=== PATIENT | male | born 1970 | race Caucasian/White ===

== ENCOUNTER 2017-07-05 19:14 | Emergency (ER) | payer OTHER ==
[2017-07-05 19:25] VITALS: BP 140/88
--- NOTE | 2017-07-05 19:43 | EDM.PDOC ---
ED HPI GENERAL MEDICAL PROBLEM - General Chief Complaint: General Stated Complaint: RIB PAIN Time Seen by Provider: 07/05/17 19:20 Source of Information: Reports: Patient History Limitations: Reports: No Limitations - History of Present Illness INITIAL COMMENTS - FREE TEXT/NARRATIVE: According to patient he claims that he has had left side lower rib pain since today morning. Pt claims he did not wake up with pain. But in the morning felt a mild spasm in hsi lower rib. he has been lifting and pulling on things. Gradually over the day the pain has got worse. Hurts when he bends forward and turns to the right side or when he takes deep breath. No chest wall lesions or bleeding. Pt is not on any meds. No fever, chills, cough , shortness of breath.No other complaints. Onset: Today Onset Date: 07/05/17 Onset Time: 08:00 Location: Reports: Chest Quality: Reports: Dull Severity: Mild Improves with: Reports: None Worsens with: Reports: None Associated Symptoms: Reports: Chest Pain. 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 Left Thoracic Pain Score (Numeric/FACES): 7 - Related Data Allergies Allergy/AdvReac Type Severity Reaction Status Date / Time No Known Allergies Allergy Verified 07/05/17 19:23 Home Meds: Home Meds NK [No Known Home Meds] 07/05/17 [History] Past Medical History HEENT History: Reports: Impaired Vision Gastrointestinal History: Reports: GERD Musculoskeletal History: Reports: Back Pain, Chronic Neurological History: Reports: Migraines - Infectious Disease History Infectious Disease History: Reports: Chicken Pox, Measles, Mumps Social & Family History - Family History Family Medical History: Noncontributory - Tobacco Use Smoking Status *Q: Former Smoker Years of Tobacco use: 33 Packs/Tins Daily: 1 Used Tobacco, but Quit: Yes Month Tobacco Last Used: 06/2017 Second Hand Smoke Exposure: No - Caffeine Use Caffeine Use: Reports: Coffee - Recreational Drug Use Recreational Drug Use: No ED ROS GENERAL - Review of Systems Review Of Systems: See Below Constitutional: Denies: Fever, Chills HEENT: Denies: Eye Discharge, Rhinitis, Sinus Problem, Throat Pain, Throat Swelling Respiratory: Reports: Pleuritic Chest Pain. Denies: Shortness of Breath, Cough , Sputum Cardiovascular: Reports: Chest Pain. Denies: Lightheadedness Endocrine: Denies: Fatigue GI/Abdominal: Denies: Abdominal Pain, Anorexia, Nausea, Stool Incontinence, Vomiting : Denies: Dysuria, Flank Pain Musculoskeletal: Denies: Joint Pain, Joint Swelling Skin: Denies: Pruritis, Rash Neurological: Denies: Confusion, Dizziness, Headache ED EXAM, GENERAL - Physical Exam Exam: See Below Exam Limited By: No Limitations General Appearance: Alert, WD/WN, No Apparent Distress Eye Exam: Bilateral Eye: EOMI, PERRL Ears: Normal External Exam, Normal Canal, Hearing Grossly Normal, Normal TMs Ear Exam: Bilateral Ear: Auricle Normal, Canal Normal, TM normal Nose: Normal Inspection, Normal Mucosa, No Blood Throat/Mouth: Normal Inspection, Normal Lips, Normal Teeth, Normal Gums, Normal Oropharynx, Normal Voice, No Airway Compromise Head: Atraumatic, Normocephalic Neck: Normal Inspection, Supple, Non-Tender, Full Range of Motion Respiratory/Chest: No Respiratory Distress, Lungs Clear, Normal Breath Sounds, No Accessory Muscle Use, Other (tender over the left lower costal margin in the left MCL line to palpation.) Course - Vital Signs Text/Narrative:: Pt reassured that he has developed costochondritis of the left lower ribs. Advised motrin 800mg 3 times daily. Intermittent heat to the chest wall 3-4 times daily. Avoid lifting heavy weight, bending or twisting motion until pain resolves. Advised to return to clinic if the chest pain gets worse or has any acute symptoms. Last Recorded V/S: Last Vital Signs Temp 98.6 F 07/05/17 19:28 Pulse 88 07/05/17 19:28 Resp 16 07/05/17 19:28 BP 140/88 07/05/17 19:28 Pulse Ox 98 07/05/17 19:28 Departure - Departure Time of Disposition: 19:45 Disposition: Home, Self-Care 01 Condition: Good Clinical Impression: Costochondritis - Discharge Information Forms: ED Department Discharge Additional Instructions: Take 800mg Motrin (Ibuprofen) by mouth 3 times daily with food, for pain. Also apply heat intermittently to affected area as directed: up to 3 times daily for 10-15 minutes each time. Activity as tolerated. Follow up in clinic if needed. - Problem List & Annotations (1) Costochondritis SNOMED Code(s): 36869473 Code(s): M94.0 - CHONDROCOSTAL JUNCTION SYNDROME [TIETZE] Status: Acute - Problem List Review Problem List Initiated/Reviewed/Updated: Yes - Assessment/Plan Assessment:: Costochondritis Plan: Pt reassured that he has developed costochondritis of the left lower ribs. Advised motrin 800mg 3 times daily. Intermittent heat to the chest wall 3-4 times daily. Avoid lifting heavy weight, bending or twisting motion until pain resolves. Advised to return to clinic if the chest pain gets worse or has any acute symptoms.
== END 2017-07-05 19:35 | disposition home or self-care (01) ==
LOC: LB.ED 19:14
DX: M94.0 Chondrocostal junction syndrome [Tietze] (principal); K21.9 Gastro-esophageal reflux disease without esophagitis; G43.909 Migraine, unspecified, not intractable, without status migrainosus; Z87.891 Personal history of nicotine dependence
CPT/HCPCS: 99283

== ENCOUNTER 2017-10-27 16:50 | Observation (INO) | payer OTHER ==
[2017-10-27] MEDS ORDERED: Sodium Chloride 0.9% 10 ML Syringe FLUSH PRN (17:04)
[2017-10-27] MEDS: Nitroglycerin 0.4 MG Tab.SL SL PRN ×2 (17:21→17:33)
--- NOTE | 2017-10-27 17:21 | EDM.PDOC ---
ED HPI GENERAL MEDICAL PROBLEM - General Chief Complaint: Chest Pain Stated Complaint: chest pain Time Seen by Provider: 10/27/17 16:50 Source of Information: Reports: Patient, RN History Limitations: Reports: No Limitations - History of Present Illness INITIAL COMMENTS - FREE TEXT/NARRATIVE: 47 yr male presents with chest pressure around 3pm today after taking a clindamycin. Upper GI pain started and chest pressure.. He took the medicine without food. States feels like indigestion. States he has family hx of cardiac disease, but none for him. States he feels if he could burp he would feel better. 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) (peptobismol) - Related Data Allergies Allergy/AdvReac Type Severity Reaction Status Date / Time No Known Allergies Allergy Verified 10/27/17 17:22 Home Meds: Home Meds Clindamycin HCl 300 mg PO QID 10/27/17 [History] Past Medical History HEENT History: Reports: Impaired Vision Gastrointestinal History: Reports: GERD Musculoskeletal History: Reports: Back Pain, Chronic Neurological History: Reports: Migraines - Infectious Disease History Infectious Disease History: Reports: Chicken Pox, Measles, Mumps Social & Family History - Family History Family Medical History: Noncontributory - Tobacco Use Smoking Status *Q: Former Smoker Years of Tobacco use: 33 Packs/Tins Daily: 1 Used Tobacco, but Quit: Yes Month Tobacco Last Used: 06/2017 Second Hand Smoke Exposure: No - Caffeine Use Caffeine Use: Reports: Coffee - Recreational Drug Use Recreational Drug Use: No ED ROS GENERAL - Review of Systems Review Of Systems: See Below Constitutional: Reports: No Symptoms HEENT: Reports: No Symptoms, Glasses Respiratory: Reports: No Symptoms Cardiovascular: Reports: Chest Pain, Other (burning ) GI/Abdominal: Reports: Other (burning to upper GI/chest) : Reports: No Symptoms Musculoskeletal: Reports: No Symptoms Skin: Reports: No Symptoms Neurological: Reports: No Symptoms Psychiatric: Reports: No Symptoms ED EXAM, GENERAL - Physical Exam Exam: See Below Exam Limited By: No Limitations General Appearance: Alert, No Apparent Distress Ears: Hearing Grossly Normal Nose: Normal Inspection, Normal Mucosa Throat/Mouth: Normal Inspection, Other (serosanguinous drainage noted to bottom jaw, where tooth extracted.) Head: Atraumatic Neck: Supple, Non-Tender Respiratory/Chest: No Respiratory Distress, Lungs Clear, Normal Breath Sounds Cardiovascular: Normal Peripheral Pulses, Regular Rate, Rhythm, No Edema GI/Abdominal: Normal Bowel Sounds, Soft, Non-Tender Extremities: Normal Inspection, Normal Range of Motion Neurological: Alert, Oriented, Normal Cognition Skin Exam: Warm, Dry, Normal Color EKG INTERPRETATION EKG Date: 10/27/17 Time: 17:01 Rhythm: NSR Course - Vital Signs Last Recorded V/S: Last Vital Signs Temp 98 F 10/27/17 17:00 Pulse 67 10/27/17 17:00 Resp 16 10/27/17 17:00 BP 144/97 H 10/27/17 17:00 Pulse Ox 100 10/27/17 17:00 - Orders/Labs/Meds Orders: Medication Orders Acetaminophen (Tylenol) 650 mg PO Q4H PRN PRN Reason: analgesia/fever Hydrocodone Bitart/Acetaminophen (Richardson 325-5 Mg) 1 tab PO Q4H PRN PRN Reason: Pain Al Hydroxide/Mg Hydroxide (Mag-Al Plus) 30 ml PO Q4H PRN PRN Reason: Dyspepsia Sodium Chloride (Normal Saline) 1,000 mls @ 100 mls/hr IV ASDIRECTED JACINDA Non-Formulary Medication (Clindamycin Hcl [Clindamycin Hcl]) 300 mg PO QID JACINDA Pantoprazole Sodium (Protonix Iv) 40 mg IVPUSH Q12H JACINDA Sodium Chloride (Saline Flush) 10 ml FLUSH ASDIRECTED PRN PRN Reason: Keep Vein Open Meds: Medications Generic Name Dose Route Start Last Admin Trade Name Freq PRN Reason Stop Dose Admin Acetaminophen 650 mg 10/27/17 18:05 Tylenol PO Q4H PRN analgesia/fever Hydrocodone Bitart/Acetaminophen 1 tab 10/27/17 18:13 Richardson 325-5 Mg PO Q4H PRN Pain Al Hydroxide/Mg Hydroxide 30 ml 10/27/17 18:05 Mag-Al Plus PO Q4H PRN Dyspepsia Sodium Chloride 1,000 mls @ 100 mls/hr 10/27/17 18:15 Normal Saline IV ASDIRECTED JACINDA Non-Formulary Medication 300 mg 10/27/17 20:00 Clindamycin Hcl [Clindamycin Hcl] PO QID JACINDA Pantoprazole Sodium 40 mg 10/28/17 06:00 Protonix Iv IVPUSH Q12H JACINDA Sodium Chloride 10 ml 10/27/17 17:04 Saline Flush FLUSH ASDIRECTED PRN Keep Vein Open Discontinued Medications Generic Name Dose Route Start Last Admin Trade Name [place] PRN Reason Stop Dose Admin Pantoprazole Sodium Confirm 10/27/17 17:46 10/27/17 19:50 Protonix Iv Administered 10/27/17 17:47 Not Given Dose 40 mg .ROUTE .STK-MED ONE Departure - Departure Time of Disposition: 18:15 Disposition: Refer to Observation Condition: Good Clinical Impression: Gastroenteritis - Problem List & Annotations (1) Chest pain in adult SNOMED Code(s): 27342420 Code(s): R07.9 - CHEST PAIN, UNSPECIFIED Status: Acute Priority: High Current Visit: Yes - Problem List Review Problem List Initiated/Reviewed/Updated: Yes - Assessment/Plan Assessment:: Chest pain: EKG, labs, chest x-ray, IV/saline lock, GI cocktail Nitro given SL X2 with some relief of pain. Pt alert and talking and in no acute distress. Results of chest x-ray and EKG reviewed with pt here 17:30 17:54 Protonix 40 mg IV was given and now jackson lawanda given. Troponin neg. CMP normal, Elevated WBC 12.41. Plan: Admit to observation: gastritis , Telemetry IV Nacl @ 100cc/hr Troponin 2100 Richardson 1 tab PO for pain.
--- NOTE | 2017-10-27 17:45 | CR ---
DATE OF SERVICE: 10/27/17 CLINICAL DATA: Chest Pain PORTABLE CHEST Comparison is made to a prior exam dated 02/04/10. The patient has taken a poor inspiration. The exam is somewhat underpenetrated. The heart size is normal. The pulmonary vasculature appears mildly prominent. It is probably accentuated by the poor inspiration. The lungs appear clear. No pneumothorax. No pleural effusions. No other significant findings. [id number] [facility]
[2017-10-27] MEDS ORDERED: Pantoprazole 40 MG Vial ONE (17:46)
[2017-10-27] MEDS ORDERED: Aluminum Hydroxide/Magnesium Hydroxide/Simethicone Susp 30 ML Cup PO PRN (18:05)
[2017-10-27] MEDS ORDERED: Acetaminophen 325 MG Tab PO PRN (18:05)
[2017-10-27] MEDS ORDERED: Acetaminophen/HYDROcodone 325-5 MG Tab PO PRN (18:13)
[2017-10-27] MEDS ORDERED: Sodium Chloride 0.9% 1,000 ML IV SCH (18:15)
[2017-10-27] MEDS ORDERED: CLINDAMYCIN HCL 300 MG PO SCH (20:00)
[2017-10-27] MEDS ORDERED: GI Cocktail Oral Solution 30 ML PO ONE (21:48)
[2017-10-27 21:54] VITALS: BP 109/77
--- NOTE | 2017-10-27 21:56 | PCM.DCSUM1 ---
Discharge Summary - Hospital Course Free Text/Narrative:: F/U with dentist for pain medication if needed and notify of reaction to antibiotic - Discharge Data Discharge Date: 10/27/17 Discharge Disposition: Home, Self-Care 01 Condition: Good - Discharge Diagnosis/Problem(s) (1) Chest pain in adult SNOMED Code(s): 60335970 ICD Code: R07.9 - CHEST PAIN, UNSPECIFIED Status: Acute Priority: High - Patient Instructions Diet: Usual Diet as Tolerated Activity: Apply Ice, Rest and Relax Today Driving: Do Not Drive Notify Provider of: Fever, Increased Pain - Discharge Plan Home Medications: Home Meds Clindamycin HCl 300 mg PO QID 10/27/17 [History] Forms: ED Department Discharge Referrals: PCP,None [Primary Care Provider] - - General Info Date of Service: 10/27/17 Admission Dx/Problem (Free Text: gastritis Functional Status: Reports: Pain Controlled - Review of Systems General: Reports: No Symptoms HEENT: Reports: No Symptoms Pulmonary: Reports: No Symptoms Cardiovascular: Reports: Other (pain improved) Gastrointestinal: Reports: Abdominal Pain (Pain is improved to abdomen) Genitourinary: Reports: No Symptoms Musculoskeletal: Reports: No Symptoms Skin: Reports: No Symptoms Neurological: Reports: No Symptoms Psychiatric: Reports: No Symptoms - Patient Data Vitals - Most Recent: Last Vital Signs Temp 98 F 10/27/17 21:44 Pulse 74 10/27/17 21:44 Resp 20 10/27/17 21:44 BP 113/74 10/27/17 21:44 Pulse Ox 99 10/27/17 21:44 Weight - Most Recent: 15 lb 3 oz Lab Results - Last 24 hrs: Laboratory Results - last 24 hr 10/27/17 Range/Units 20:45 Troponin I < 0.017 (0.000-0.060) ng/mL Med Orders - Current: Current Medications Nitroglycerin (Nitrostat) 0.4 mg SL Q5M PRN PRN Reason: Chest Pain Discontinued Medications Acetaminophen (Tylenol) 650 mg PO Q4H PRN PRN Reason: analgesia/fever Hydrocodone Bitart/Acetaminophen ([place] 325-5 Mg) 1 tab PO Q4H PRN PRN Reason: Pain Last Admin: 10/27/17 20:10 Dose: 1 tab Al Hydroxide/Mg Hydroxide (Mag-Al Plus) 30 ml PO Q4H PRN PRN Reason: Dyspepsia Last Admin: 10/27/17 21:37 Dose: 30 ml Al Hydroxide/Mg Hydroxide (Gi Cocktail) 30 ml PO ONETIME ONE Stop: 10/27/17 21:49 Sodium Chloride (Normal Saline) 1,000 mls @ 100 mls/hr IV ASDIRECTED [facility] Last Admin: 10/27/17 18:30 Dose: 100 mls/hr Non-Formulary Medication (Clindamycin Hcl [Clindamycin Hcl]) 300 mg PO QID [facility] Last Admin: 10/27/17 21:00 Dose: 300 mg Pantoprazole Sodium (Protonix Iv) Confirm Administered Dose 40 mg .ROUTE .STK -MED ONE Stop: 10/27/17 17:47 Last Admin: 10/27/17 19:50 Dose: Not Given Pantoprazole Sodium (Protonix Iv) 40 mg IVPUSH Q12H [facility] Last Admin: 10/27/17 17:54 Dose: 40 mg Sodium Chloride (Saline Flush) 10 ml FLUSH ASDIRECTED PRN PRN Reason: Keep Vein Open Last Admin: 10/27/17 17:05 Dose: 10 ml - Exam General: Reports: Alert, Oriented HEENT: Reports: Mucous Membr. Moist/Eunice Neck: Reports: Supple Lungs: Reports: Clear to Auscultation, Normal Respiratory Effort Cardiovascular: Reports: Regular Rate, Regular Rhythm GI/Abdominal Exam: Normal Bowel Sounds, Soft Extremities: Normal Inspection, Normal Range of Motion, Non-Tender, No Pedal Edema Skin: Reports: Warm, Dry, Intact Neurological: Reports: No New Focal Deficit Psy/Mental Status: Reports: Alert, Normal Affect, Normal Mood *Q Meaningful Use (DIS) - VTE *Q VTE Criteria *Q: - Stroke *Q Stroke Criteria *Q: - AMI *Q AMI Criteria *Q:
[2017-10-28] MEDS ORDERED: Pantoprazole 40 MG Vial IVPUSH SCH (06:00)
== END 2017-10-27 21:47 | disposition home or self-care (01) ==
LOC: LB.ED 16:50 → UNDOADMOB 17:00 → LB.MS 17:00 → UNDOADMOB 18:15 → UNDODISOB 21:47
PROVIDERS: ADMIT Nurse Practitioner Family; ATTEND Nurse Practitioner Family
DX: R07.9 Chest pain, unspecified (principal); K21.9 Gastro-esophageal reflux disease without esophagitis; G89.29 Other chronic pain; M54.5 Low back pain; Z87.891 Personal history of nicotine dependence; Z79.899 Other long term (current) drug therapy
CPT/HCPCS: 36415; 71010; 84484; 93005; 96361; 99285; A9270; C9113; G0378; J7040; J7050

== ENCOUNTER 2019-01-13 07:46 | Day surgery (SDC) | payer OTHER ==
[2019-01-13] MEDS: Sodium Chloride 0.9% 1,000 ML IV SCH (08:18)
[2019-01-13] MEDS ORDERED: Midazolam 1 MG/ML 2 ML SDV ONE (10:15)
[2019-01-13] MEDS ORDERED: Propofol 1,000 MG/100 ML SDV ONE (10:15)
[2019-01-13] MEDS ORDERED: Glycopyrrolate 0.2 MG/ML 2 ML SDV ONE (10:15)
[2019-01-13 11:05] VITALS: BP 136/96
[2019-01-13] MEDS: Metoclopramide 10 MG/2 ML SDV IV PRN (11:55)
--- NOTE | 2019-01-13 13:28 | OR ---
DATE OF OPERATION: 01/13/2019 PREOPERATIVE DIAGNOSIS: Screening colonoscopy, family history of colon cancer. POSTOPERATIVE DIAGNOSIS: Screening colonoscopy, family history of colon cancer. PROCEDURE: Colonoscopy. ANESTHESIA: MAC. ESTIMATED BLOOD LOSS: None. COMPLICATIONS: None. INDICATIONS FOR THE PROCEDURE: The patient is a 48-year-old male who is here today for screening colonoscopy. The patient does have a family history with his mother being diagnosed at 29 and dying at age 35 from colon cancer. The patient otherwise denies any change in his bowel habits. He has never had a colonoscopy or Cologuard before. DESCRIPTION OF PROCEDURE: Informed consent was obtained from the patient. The patient was taken to the operating room and placed on table in left lateral decubitus position. Monitored anesthesia care was administered. Digital rectal exam was performed and was normal. Colonoscope then advanced through the anus, directed toward the cecum. Cecum was reached and identified by appendiceal orifice and ileocecal valve. Colonoscope was then slowly withdrawn. No polyps, no masses identified. The patient did have some mild diverticulosis in the sigmoid colon. Retroflexion was performed in the rectum and was also unremarkable. Colonoscope was then withdrawn. FINDINGS: Sigmoid diverticulosis. RECOMMENDATIONS: We would recommend repeat screening colonoscopies every 5 years due to family history. Otherwise, we would recommend high-fiber diet due to diverticula. ADILIA /[id number]
== END 2019-01-13 12:59 | disposition home or self-care (01) ==
LOC: LB.SDS 07:46
PROVIDERS: ATTEND Surgery
DX: Z12.11 Encounter for screening for malignant neoplasm of colon (principal); K57.30 Diverticulosis of large intestine without perforation or abscess without bleeding; Z80.0 Family history of malignant neoplasm of digestive organs
CPT/HCPCS: 45378; J2250; J2704; J2765; J3490; J7030

== ENCOUNTER 2020-07-29 02:30 | Inpatient (IN) | payer BC, OTHER ==
--- NOTE | 2020-07-29 02:50 | EDM.PDOC ---
ED HPI GENERAL MEDICAL PROBLEM - General Chief Complaint: Abdominal Pain Stated Complaint: Possible Diverticulitis Time Seen by Provider: 07/29/20 02:32 Source of Information: Reports: Patient History Limitations: Reports: No Limitations - History of Present Illness INITIAL COMMENTS - FREE TEXT/NARRATIVE: lower abdominal pain x 2 weeks, had a virtual visit with Dr. Agosto last week and was diagnosed with diverticulitis and started on cipro and flagyl. He started the antibiotics tonight and the pain increased with N/V/D. Denies any chest pain, SOB, fever, cough, urinary symptoms Quality: Reports: Ache Severity: Moderate Improves with: Reports: None Worsens with: Reports: None Associated Symptoms: Reports: No Other Symptoms - Related Data Allergies Allergy/AdvReac Type Severity Reaction Status Date / Time clindamycin Allergy Hives Verified 01/11/19 09:18 Home Meds: Home Meds buPROPion [Wellbutrin] 150 mg PO BID 01/11/19 [History] Past Medical History - Past Health History Medical/Surgical History: Denies Medical/Surgical History HEENT History: Reports: Impaired Vision Gastrointestinal History: Reports: GERD Musculoskeletal History: Reports: Back Pain, Chronic Neurological History: Reports: Migraines Psychiatric History: Reports: Depression - Infectious Disease History Infectious Disease History: Reports: Chicken Pox, Measles - Past Surgical History HEENT Surgical History: Reports: Other (See Below) Other HEENT Surgeries/Procedures: removed right second moler Neurological Surgical History: Reports: None Social & Family History - Family History Family Medical History: Noncontributory Cardiac: Reports: CAD - Caffeine Use Caffeine Use: Reports: Coffee Caffeine Use Comment: one cup a day ED ROS GENERAL - Review of Systems Review Of Systems: See Below Constitutional: Reports: No Symptoms HEENT: Reports: No Symptoms Respiratory: Reports: No Symptoms Cardiovascular: Reports: No Symptoms Endocrine: Reports: No Symptoms GI/Abdominal: Reports: Abdominal Pain, Diarrhea, Nausea, Vomiting : Reports: No Symptoms Musculoskeletal: Reports: No Symptoms Skin: Reports: No Symptoms Neurological: Reports: No Symptoms Psychiatric: Reports: No Symptoms ED EXAM, GI/ABD - Physical Exam Exam: See Below Exam Limited By: No Limitations General Appearance: Alert, No Apparent Distress Throat/Mouth: Normal Inspection Head: Atraumatic Neck: Normal Inspection, Full Range of Motion Respiratory/Chest: No Respiratory Distress, Lungs Clear, Normal Breath Sounds Cardiovascular: No Edema, No Murmur, Tachycardia GI/Abdominal Exam: Tender, Abnormal Bowel Sounds (hypoactive) Extremities: Normal Inspection, Normal Range of Motion, Non-Tender, No Pedal Edema Neurological: Alert, Oriented, Normal Gait Psychiatric: Normal Affect, Normal Mood Skin Exam: Warm, Dry, Intact Course - Vital Signs Last Recorded V/S: Last Vital Signs Temp 96.9 F 07/29/20 02:32 Pulse 92 07/29/20 02:32 Resp 16 07/29/20 02:32 BP 148/98 H 07/29/20 02:32 Pulse Ox 96 07/29/20 02:32 - Orders/Labs/Meds Orders: Active Orders 24 hr Category Date Time Status Admission Status [Patient Status] [ADT] Routine ADT 07/29/20 04:23 Ordered Abdomen Pelvis wo Cont [CT] Stat Exams 07/29/20 02:46 Taken Labs: Laboratory Tests 07/29/20 07/29/20 Range/Units 02:46 02:46 WBC 12.2 H D (4.0-11.0) K/uL RBC 5.29 (4.50-6.50) M/uL Hgb 15.1 (13.0-18.0) g/dL Hct 44.9 (40.0-54.0) % MCV 85 (76-96) fL MCH 28.5 (27.0-32.0) pg MCHC 33.6 (31.0-35.0) g/dL RDW 14.9 (11.0-16.0) % Plt Count 245 (150-400) K/uL MPV 11.0 H (6.0-10.0) fL Neut % (Auto) 75.3 H (45.0-70.0) % Lymph % (Auto) 16.7 L (20.0-40.0) % Crawford % (Auto) 6.7 (3.0-10.0) % Eos % (Auto) 1.1 (1.0-5.0) % Baso % (Auto) 0.2 (0.0-0.5) % Neut # (Auto) 9.16 H (2.00-7.50) K/uL Lymph # (Auto) 2.04 (1.50-4.00) K/uL Crawford # (Auto) 0.82 H (0.20-0.80) K/uL Eos # (Auto) 0.14 (0.04-0.40) K/uL Baso # (Auto) 0.03 (0.02-0.10) K/uL Sodium 140 (136-145) mmol/L Potassium 4.1 (3.5-5.1) mmol/L Chloride 105 (98-107) mmol/L Carbon Dioxide 24.6 (21.0-32.0) mmol/L Anion Gap 14.5 (5.0-15.0) mmol/L BUN 14 (8-26) mg/dL Creatinine 1.27 D (0.70-1.30) mg/dL Est Cr Clr Drug Dosing 74.11 mL/min Estimated GFR (MDRD) > 60 (>60) MLS/MIN BUN/Creatinine Ratio 11.0 (6-25) Glucose 122 H (74-100) mg/dL Calcium 8.7 (8.5-10.1) mg/dL Total Bilirubin 0.4 (0.0-1.0) mg/dL AST 16 (15-37) U/L ALT 34 (12-78) U/L Alkaline Phosphatase 57 (46-116) U/L Total Protein 6.9 (6.4-8.2) g/dL Albumin 3.1 L (3.4-5.0) g/dL Globulin 3.8 (2.2-4.2) g/dL Albumin/Globulin Ratio 0.8 (0.8-2.0) Meds: Medications Discontinued Medications Generic Name Dose Route Start Last Admin Trade Name Freq PRN Reason Stop Dose Admin Hydromorphone HCl 1 mg 07/29/20 02:52 07/29/20 02:56 Dilaudid IVPUSH 07/29/20 02:53 1 mg ONETIME ONE Administration Ondansetron HCl 8 mg 07/29/20 02:52 07/29/20 02:56 Zofran IVPUSH 07/29/20 02:53 8 mg ONETIME ONE Administration Departure - Departure Time of Disposition: 04:26 Disposition: Admitted As Inpatient 66 Condition: Good Clinical Impression: Diverticulitis Leukocytosis Qualifiers: Leukocytosis type: unspecified Qualified Code(s): D72.829 - Elevated white blood cell count, unspecified Clinical Impression: (Ruled Out): Diverticulitis of intestine with perforation without abscess, Diverticula of intestine - Discharge Information *PRESCRIPTION DRUG MONITORING PROGRAM REVIEWED*: Not Applicable *COPY OF PRESCRIPTION DRUG MONITORING REPORT IN PATIENT CHARY: Not Applicable Instructions: Diverticulitis, [id number] Forms: ED Department Discharge Sepsis Event Note (ED) - Evaluation Sepsis Screening Result: No Definite Risk - Focused Exam Vital Signs: Vital Signs Temp Pulse Resp BP Pulse Ox 07/29/20 02:32 96.9 F 92 16 148/98 H 96 - My Orders Last 24 Hours: My Active Orders 07/29/20 02:46 Abdomen Pelvis wo Cont [CT] Stat 07/29/20 04:23 Admission Status [Patient Status] [ADT] Routine - Assessment/Plan Last 24 Hours: My Active Orders 07/29/20 02:46 Abdomen Pelvis wo Cont [CT] Stat 07/29/20 04:23 Admission Status [Patient Status] [ADT] Routine Plan: CT reveals "sigmoid colon diverticulitis with marked surrounding stranding with adjacent extraluminal focus of air compatible with microperforation" patient has good pain relief but unable to tolerate PO liquids. Will admit to obs for IV fluids and IV antibiotics. Patient will remain NPO. He verbalized understanding of the plan.
[2020-07-29] MEDS ORDERED: HYDROmorphone 2 MG/ML SDV IVPUSH ONE (02:52)
[2020-07-29] MEDS ORDERED: Ondansetron 4 MG/2 ML SDV IVPUSH ONE (02:52)
[2020-07-29] MEDS ORDERED: metroNIDAZOLE/Normal Saline 100 ML ONE ×3 (05:04→23:40)
[2020-07-29] MEDS: Sodium Chloride 0.9% 1,000 ML IV SCH (05:23)
[2020-07-29] MEDS: metroNIDAZOLE/Normal Saline 500 MG in Premix Bag 1 BAG IV SCH ×3 (05:24→23:41)
[2020-07-29] MEDS ORDERED: Acetaminophen 325 MG Tab PO PRN (08:08)
[2020-07-29] MEDS: Ciprofloxacin in D5W 400 MG in Premix Bag 1 BAG IV SCH ×4 (08:17→22:06)
--- NOTE | 2020-07-29 10:04 | CT ---
DATE OF SERVICE: 07/29/20 CLINICAL DATA: abd pain UNENHANCED ABDOMEN AND PELVIC CT: Multislice acquisition through the abdomen and pelvis without IV, but with oral contrast was performed. No priors. There are mild atelectatic changes in the dependent portion of both lower lungs and in both lung bases. The lung bases are otherwise clear. The heart size is normal. There is mural thickening within the distal esophagus. Esophagitis should be considered. There is diffuse fatty infiltration of the liver. No focal hepatic lesions. The gallbladder appears normal. No calcified gallstones. No pericholecystic fluid. The spleen appears normal. The pancreas appears normal. The right and left adrenals appear normal. There are multiple parapelvic cysts in the left kidney. The right and left kidneys otherwise appear normal. No nephrocalcinosis or nephrolithiasis. No hydronephrosis or hydroureter. The bladder is partially fluid filled. It appears normal. No evidence of appendicitis. There is diverticulosis of the descending and sigmoid colon. There is pericolonic fat stranding adjacent to the mid sigmoid colon. There is also small gas collection extrinsic to the colon consistent with a controlled perforation. There is mural thickening throughout this segment of the colon also. No evidence of a diverticular abscess. No free air. There is a small amount of free fluid noted within the pelvis. No dilated loops of bowel. No adenopathy. No aortic aneurysm. There is a small fat containing umbilical hernia. There are small fat containing inguinal hernias bilaterally. No other significant findings. IMPRESSION: Findings consistent with sigmoid diverticulitis with small gas collection extrinsic to the colon, consistent with a controlled perforation. No evidence of diverticular abscess. There is mural thickening throughout this segment of the colon. Colonoscopy after treatment is recommended. [id number] [facility]
--- NOTE | 2020-07-29 13:24 | PCM.PN ---
- General Info Date of Service: 07/29/20 Subjective Update: Denies any nausea, will PO challenge. Patient reports decreased pain, was able to sleep well last night. Will plan for DC later today with resuming oral antibiotics if PO challenge is successful./ Functional Status: Reports: Pain Controlled, Ambulating, Urinating - Review of Systems General: Reports: No Symptoms HEENT: Reports: No Symptoms Pulmonary: Reports: No Symptoms Cardiovascular: Reports: No Symptoms Gastrointestinal: Reports: Abdominal Pain (slight generalized abdominal pressure, much improved since last night) Genitourinary: Reports: No Symptoms Musculoskeletal: Reports: No Symptoms Skin: Reports: No Symptoms Neurological: Reports: No Symptoms Psychiatric: Reports: No Symptoms - Patient Data Vitals - Most Recent: Last Vital Signs Temp 99.4 F 07/29/20 08:39 Pulse 94 07/29/20 08:39 Resp 18 07/29/20 08:39 BP 124/80 07/29/20 08:39 Pulse Ox 96 07/29/20 08:39 Weight - Most Recent: 265 lb I&O - Last 24 Hours: Intake & Output 07/28/20 07/29/20 07/29/20 22:59 06:59 14:59 Intake Total 60 Balance 60 Lab Results Last 24 Hours: Laboratory Results - last 24 hr 07/29/20 07/29/20 07/29/20 Range/Units 02:46 02:46 04:25 WBC 12.2 H D (4.0-11.0) K/uL RBC 5.29 (4.50-6.50) M/uL Hgb 15.1 (13.0-18.0) g/dL Hct 44.9 (40.0-54.0) % MCV 85 (76-96) fL MCH 28.5 (27.0-32.0) pg MCHC 33.6 (31.0-35.0) g/dL RDW 14.9 (11.0-16.0) % Plt Count 245 (150-400) K/uL MPV 11.0 H (6.0-10.0) fL Neut % (Auto) 75.3 H (45.0-70.0) % Lymph % (Auto) 16.7 L (20.0-40.0) % [place] % (Auto) 6.7 (3.0-10.0) % Eos % (Auto) 1.1 (1.0-5.0) % Baso % (Auto) 0.2 (0.0-0.5) % Neut # (Auto) 9.16 H (2.00-7.50) K/uL Lymph # (Auto) 2.04 (1.50-4.00) K/uL [place] # (Auto) 0.82 H (0.20-0.80) K/uL Eos # (Auto) 0.14 (0.04-0.40) K/uL Baso # (Auto) 0.03 (0.02-0.10) K/uL Sodium 140 (136-145) mmol/L Potassium 4.1 (3.5-5.1) mmol/L Chloride 105 (98-107) mmol/L Carbon Dioxide 24.6 (21.0-32.0) mmol/L Anion Gap 14.5 (5.0-15.0) mmol/L BUN 14 (8-26) mg/dL Creatinine 1.27 D (0.70-1.30) mg/dL Est Cr Clr Drug Dosing 74.11 mL/min Estimated GFR (MDRD) > 60 (>60) MLS/MIN BUN/Creatinine Ratio 11.0 (6-25) Glucose 122 H (74-100) mg/dL Calcium 8.7 (8.5-10.1) mg/dL Total Bilirubin 0.4 (0.0-1.0) mg/dL AST 16 (15-37) U/L ALT 34 (12-78) U/L Alkaline Phosphatase 57 (46-116) U/L Total Protein 6.9 (6.4-8.2) g/dL Albumin 3.1 L (3.4-5.0) g/dL Globulin 3.8 (2.2-4.2) g/dL Albumin/Globulin Ratio 0.8 (0.8-2.0) Urine Color Yellow Urine Appearance Cloudy (CLEAR) Urine pH 5.0 (5.0-8.0) Ur Specific [place] >= 1.030 (1.003-1.030) Urine Protein Negative (NEGATIVE) mg/dL Urine Glucose (UA) Negative (NEGATIVE) mg/dL Urine Ketones Negative (NEGATIVE) mg/dL Urine Occult Blood Negative (NEGATIVE) Urine Nitrite Negative (NEGATIVE) Urine Bilirubin Negative (NEGATIVE) Urine Urobilinogen 0.2 (0.2-1.0) E.U./dL Ur Leukocyte Esterase Negative (NEGATIVE) Med Orders - Current: Current Medications Acetaminophen (Tylenol) 650 mg PO Q6H PRN PRN Reason: Headache Last Admin: 07/29/20 08:23 Dose: 650 mg Documented by: Hydromorphone HCl (Dilaudid) 0.5 mg IVPUSH Q4H PRN PRN Reason: Abdominal Pain Metronidazole 500 mg/ Premix 100 mls @ 100 mls/hr IV Q8H [facility] Last Admin: 07/29/20 12:28 Dose: 100 mls/hr Documented by: Ciprofloxacin/Dextrose 400 mg/ (Premix) 200 mls @ 200 mls/hr IV Q12HR [facility] Last Admin: 07/29/20 08:17 Dose: 200 mls/hr Documented by: Sodium Chloride (Normal Saline) 1,000 mls @ 100 mls/hr IV ASDIRECTED [facility] Last Admin: 07/29/20 05:23 Dose: 100 mls/hr Documented by: Discontinued Medications Hydromorphone HCl (Dilaudid) 1 mg IVPUSH ONETIME ONE Stop: 07/29/20 02:53 Last Admin: 07/29/20 02:56 Dose: 1 mg Documented by: Metronidazole (Flagyl 500 Mg In Ns 100 Ml) Confirm Administered Dose 100 mls @ as directed .ROUTE .STK-MED ONE Stop: 07/29/20 05:05 Last Admin: 07/29/20 05:25 Dose: Not Given Documented by: Metronidazole (Flagyl 500 Mg In Ns 100 Ml) Confirm Administered Dose 100 mls @ as directed .ROUTE .STK-MED ONE Stop: 07/29/20 12:16 Last Admin: 07/29/20 13:17 Dose: Not Given Documented by: Ondansetron HCl (Zofran) 8 mg IVPUSH ONETIME ONE Stop: 07/29/20 02:53 Last Admin: 07/29/20 02:56 Dose: 8 mg Documented by: Sepsis Event Note - Evaluation Sepsis Screening Result: Sepsis Risk - Focused Exam Vital Signs: Vital Signs Temp Pulse Resp BP Pulse Ox 07/29/20 08:39 99.4 F 94 18 124/80 96 07/29/20 04:39 95.6 F L 87 18 133/91 H 92 L 07/29/20 02:32 96.9 F 92 16 148/98 H 96 - Problem List Review Problem List Initiated/Reviewed/Updated: Yes - My Orders Last 24 Hours: My Active Orders 07/29/20 04:23 Admission Status [Patient Status] [ADT] Routine 07/29/20 04:39 Patient Status [ADT] Routine Up ad Radha [RC] DAILY Vital Signs [RC] Q4H 07/29/20 04:45 Sodium Chloride 0.9% [Normal Saline] 1,000 ml IV ASDIRECTED metroNIDAZOLE/Normal Saline [Flagyl 500 MG in NS 100 ML] 500 mg Premix Bag 1 bag IV Q8H 07/29/20 04:47 HYDROmorphone [Dilaudid] 0.5 mg IVPUSH Q4H PRN 07/29/20 05:41 CULTURE MRSA SURVEY [RM] Routine 07/29/20 06:42 Resuscitation Status Routine 07/29/20 Breakfast Nothing per Oral Now Diet [DIET] 07/29/20 08:00 Ciprofloxacin in D5W [Cipro in D5W 400 MG/200 ML] 400 mg Premix Bag 1 bag IV Q12HR 07/29/20 08:08 Acetaminophen [TylenoL] 650 mg PO Q6H PRN 07/29/20 12:58 CORONAVIRUS COVID-19 RAPID [MOLEC] Stat 07/29/20 13:20 Oral Fluid Challenge [RC] ASDIRECTED
[2020-07-29] MEDS: Acetaminophen 325 MG Tab PO PRN (16:34)
[2020-07-29] MEDS ORDERED: Ciprofloxacin in D5W 200 ML ONE (21:54)
[2020-07-29] MEDS: HYDROmorphone 2 MG/ML SDV IVPUSH PRN (22:29)
[2020-07-30] MEDS: metroNIDAZOLE/Normal Saline 500 MG in Premix Bag 1 BAG IV SCH (04:24)
[2020-07-30] MEDS: HYDROmorphone 2 MG/ML SDV IVPUSH PRN (04:51)
[2020-07-30] MEDS ORDERED: Ciprofloxacin in D5W 200 ML ONE (07:16)
[2020-07-30] MEDS: Acetaminophen 325 MG Tab PO PRN ×2 (07:25→17:16)
[2020-07-30] MEDS: Ciprofloxacin in D5W 400 MG in Premix Bag 1 BAG IV SCH ×2 (07:33)
[2020-07-30] MEDS: Sodium Chloride 0.9% 1,000 ML IV SCH ×2 (09:58→23:48)
--- NOTE | 2020-07-30 10:41 | PCM.PN ---
- General Info Date of Service: 07/30/20 Subjective Update: Patient has persistent abdominal pain 5/10 when moving or pressure is placed on the abdomen. He notes he has a small appetite and has taken some clear liquids at this time. He denies any fever or chills or other issues. - Review of Systems General: Reports: No Symptoms HEENT: Reports: No Symptoms Pulmonary: Reports: No Symptoms Cardiovascular: Reports: No Symptoms Gastrointestinal: Reports: Abdominal Pain, Nausea Genitourinary: Reports: No Symptoms Musculoskeletal: Reports: No Symptoms Skin: Reports: No Symptoms Neurological: Reports: No Symptoms Psychiatric: Reports: No Symptoms - Patient Data Vitals - Most Recent: Last Vital Signs Temp 36.8 C 07/30/20 07:58 Pulse 88 07/30/20 07:58 Resp 18 07/30/20 07:58 BP 122/85 07/30/20 07:58 Pulse Ox 96 07/30/20 07:58 Weight - Most Recent: 120.202 kg I&O - Last 24 Hours: Intake & Output 07/29/20 07/30/20 07/30/20 22:59 06:59 14:59 Intake Total 1600 1300 Balance 1600 1300 Lab Results Last 24 Hours: Laboratory Results - last 24 hr 07/29/20 07/30/20 Range/Units 13:00 08:20 WBC 12.7 H (4.0-11.0) K/uL RBC 4.81 (4.50-6.50) M/uL Hgb 13.7 (13.0-18.0) g/dL Hct 41.6 (40.0-54.0) % MCV 87 (76-96) fL MCH 28.5 (27.0-32.0) pg MCHC 32.9 (31.0-35.0) g/dL RDW 15.3 (11.0-16.0) % Plt Count 211 (150-400) K/uL MPV 11.0 H (6.0-10.0) fL Neut % (Auto) 76.2 H (45.0-70.0) % Lymph % (Auto) 14.0 L (20.0-40.0) % [place] % (Auto) 9.0 (3.0-10.0) % Eos % (Auto) 0.6 L (1.0-5.0) % Baso % (Auto) 0.2 (0.0-0.5) % Neut # (Auto) 9.69 H (2.00-7.50) K/uL Lymph # (Auto) 1.78 (1.50-4.00) K/uL [place] # (Auto) 1.15 H (0.20-0.80) K/uL Eos # (Auto) 0.07 (0.04-0.40) K/uL Baso # (Auto) 0.02 (0.02-0.10) K/uL SARS CoV-2 RNA Rapid KEVIN Negative Med Orders - Current: Current Medications Acetaminophen (Tylenol) 650 mg PO Q4H PRN PRN Reason: Pain Last Admin: 07/30/20 07:25 Dose: 650 mg Documented by: Hydromorphone HCl (Dilaudid) 0.5 mg IVPUSH Q4H PRN PRN Reason: Abdominal Pain Last Admin: 07/30/20 04:51 Dose: 0.5 mg Documented by: Sodium Chloride (Normal Saline) 1,000 mls @ 100 mls/hr IV ASDIRECTED [facility] Last Admin: 07/30/20 09:58 Dose: 100 mls/hr Documented by: Ciprofloxacin/Dextrose (Cipro In D5w 400 Mg/200 Ml) 200 mls @ 200 mls/hr IV BID JACINDA Metronidazole (Flagyl 500 Mg In Ns 100 Ml) 100 mls @ 100 mls/hr IV Q8H [facility] Discontinued Medications Acetaminophen (Tylenol) 650 mg PO Q6H PRN PRN Reason: Headache Last Admin: 07/29/20 08:23 Dose: 650 mg Documented by: Hydromorphone HCl (Dilaudid) 1 mg IVPUSH ONETIME ONE Stop: 07/29/20 02:53 Last Admin: 07/29/20 02:56 Dose: 1 mg Documented by: Metronidazole 500 mg/ Premix 100 mls @ 100 mls/hr IV Q8H [facility] Last Admin: 07/30/20 04:24 Dose: 100 mls/hr Documented by: Ciprofloxacin/Dextrose 400 mg/ (Premix) 200 mls @ 200 mls/hr IV Q12HR [facility] Last Admin: 07/30/20 07:33 Dose: 200 mls/hr Documented by: Metronidazole (Flagyl 500 Mg In Ns 100 Ml) Confirm Administered Dose 100 mls @ as directed .ROUTE .STK-MED ONE Stop: 07/29/20 05:05 Last Admin: 07/29/20 05:25 Dose: Not Given Documented by: Metronidazole (Flagyl 500 Mg In Ns 100 Ml) Confirm Administered Dose 100 mls @ as directed .ROUTE .STK-MED ONE Stop: 07/29/20 12:16 Last Admin: 07/29/20 13:17 Dose: Not Given Documented by: Ciprofloxacin/Dextrose (Cipro In D5w 400 Mg/200 Ml) Confirm Administered Dose 200 mls @ as directed .ROUTE .STK-MED ONE Stop: 07/29/20 21:55 Last Admin: 07/29/20 23:37 Dose: Not Given Documented by: Metronidazole (Flagyl 500 Mg In Ns 100 Ml) Confirm Administered Dose 100 mls @ as directed .ROUTE .STK-MED ONE Stop: 07/29/20 23:41 Last Admin: 07/30/20 01:10 Dose: Not Given Documented by: Ciprofloxacin/Dextrose (Cipro In D5w 400 Mg/200 Ml) Confirm Administered Dose 200 mls @ as directed .ROUTE .STK-MED ONE Stop: 07/30/20 07:17 Last Admin: 07/30/20 07:36 Dose: Not Given Documented by: Ondansetron HCl (Zofran) 8 mg IVPUSH ONETIME ONE Stop: 07/29/20 02:53 Last Admin: 07/29/20 02:56 Dose: 8 mg Documented by: - Exam General: Alert, Oriented, Cooperative HEENT: Pupils Equal, Pupils Reactive, EOMI Neck: Supple Lungs: Clear to Auscultation, Normal Respiratory Effort Cardiovascular: Regular Rate, Regular Rhythm GI/Abdominal Exam: Tender, Abnormal Bowel Sounds Extremities: Normal Inspection Sepsis Event Note - Evaluation Sepsis Screening Result: No Definite Risk - Focused Exam Vital Signs: Vital Signs Temp Pulse Resp BP Pulse Ox 07/30/20 07:58 36.8 C 88 18 122/85 96 07/30/20 04:00 36.6 C 97 18 141/88 H 96 - Problem List & Annotations (1) Diverticulitis SNOMED Code(s): 756802268 Code(s): K57.92 - DVTRCLI OF INTEST, PART UNSP, W/O PERF OR ABSCESS W/O BLEED Status: Acute Priority: High Current Visit: Yes (2) Bowel perforation SNOMED Code(s): 46850095 Code(s): K63.1 - PERFORATION OF INTESTINE (NONTRAUMATIC) Status: Acute Priority: High Current Visit: Yes - Problem List Review Problem List Initiated/Reviewed/Updated: Yes - My Orders Last 24 Hours: My Active Orders 07/30/20 10:40 Admission Status [Patient Status] [ADT] Routine - Plan Plan:: Patient to continue pain medications as needed. Continue IV antibiotics and add Rocephin 2g q24 and if no improvement we will co nsider surgical consult and transfer. Patient counseled and agrees with plan of care. Discussed return to NPO with just water and Ice chips. F/u labs in AM.
[2020-07-30] MEDS: metroNIDAZOLE/Normal Saline 100 ML IV SCH ×2 (12:20→21:49)
[2020-07-30] MEDS ORDERED: Ondansetron 4 MG Tab.DIS ONE (14:29)
[2020-07-30] MEDS: Ondansetron 4 MG Tab.DIS PO PRN ×2 (14:51→21:39)
[2020-07-30] MEDS: cefTRIAXone 2 GM in Sodium Chloride 0.9% 100 ML IV SCH (19:11)
[2020-07-30] MEDS: Ciprofloxacin in D5W 200 ML IV SCH (20:38)
[2020-07-31] MEDS ORDERED: diphenhydrAMINE 50 MG Cap PO ONE (00:02)
[2020-07-31] MEDS: metroNIDAZOLE/Normal Saline 100 ML IV SCH ×3 (04:58→20:49)
[2020-07-31] MEDS: Ondansetron 4 MG Tab.DIS PO PRN ×2 (08:18→19:07)
[2020-07-31] MEDS: Ciprofloxacin in D5W 200 ML IV SCH ×2 (08:35→22:08)
[2020-07-31] MEDS: Lactobacillus Acidophilus/Lactobacillus Sporogenes (Probiotic) Tab PO SCH (11:47)
[2020-07-31] MEDS: Sodium Chloride 0.9% 1,000 ML IV SCH ×2 (11:58→19:04)
--- NOTE | 2020-07-31 14:32 | PCM.PN ---
- General Info Date of Service: 07/31/20 Subjective Update: Patient notes improvement of abdominal pain. He did have some loose stools and is now being tested for C. diff. and on contact precautions. He notes that his pain is 3-4/10 pain. - Review of Systems General: Reports: No Symptoms HEENT: Reports: No Symptoms Pulmonary: Reports: No Symptoms Cardiovascular: Reports: No Symptoms Gastrointestinal: Reports: Abdominal Pain, Decreased Appetite Genitourinary: Reports: No Symptoms Musculoskeletal: Reports: No Symptoms Skin: Reports: No Symptoms Neurological: Reports: No Symptoms Psychiatric: Reports: No Symptoms - Patient Data Vitals - Most Recent: Last Vital Signs Temp 36.5 C 07/31/20 11:40 Pulse 92 07/31/20 11:40 Resp 18 07/31/20 11:40 BP 133/93 H 07/31/20 11:40 Pulse Ox 98 07/31/20 11:40 Weight - Most Recent: 120.202 kg I&O - Last 24 Hours: Intake & Output 07/30/20 07/31/20 07/31/20 22:59 06:59 14:59 Intake Total 1047 1300 Balance 1047 1300 Lab Results Last 24 Hours: Laboratory Results - last 24 hr 07/31/20 07/31/20 07/31/20 Range/Units 07:30 07:30 07:30 WBC 12.0 H (4.0-11.0) K/uL RBC 4.78 (4.50-6.50) M/uL Hgb 13.6 (13.0-18.0) g/dL Hct 40.9 (40.0-54.0) % MCV 86 (76-96) fL MCH 28.5 (27.0-32.0) pg MCHC 33.3 (31.0-35.0) g/dL RDW 14.9 (11.0-16.0) % Plt Count 215 (150-400) K/uL MPV 10.8 H (6.0-10.0) fL Neut % (Auto) 79.2 H (45.0-70.0) % Lymph % (Auto) 11.6 L (20.0-40.0) % [place] % (Auto) 8.3 (3.0-10.0) % Eos % (Auto) 0.6 L (1.0-5.0) % Baso % (Auto) 0.3 (0.0-0.5) % Neut # (Auto) 9.49 H (2.00-7.50) K/uL Lymph # (Auto) 1.39 L (1.50-4.00) K/uL [place] # (Auto) 1.00 H (0.20-0.80) K/uL Eos # (Auto) 0.07 (0.04-0.40) K/uL Baso # (Auto) 0.03 (0.02-0.10) K/uL Sodium 140 (136-145) mmol/L Potassium 3.8 (3.5-5.1) mmol/L Chloride 103 (98-107) mmol/L Carbon Dioxide 26.8 (21.0-32.0) mmol/L Anion Gap 14.0 (5.0-15.0) mmol/L BUN 9 D (8-26) mg/dL Creatinine 1.04 (0.70-1.30) mg/dL Est Cr Clr Drug Dosing 90.50 mL/min Estimated GFR (MDRD) > 60 (>60) MLS/MIN BUN/Creatinine Ratio 8.7 (6-25) Glucose 105 H (74-100) mg/dL Lactic Acid 0.8 (0.4-2.0) mmol/L Calcium 7.9 L (8.5-10.1) mg/dL Total Bilirubin 0.5 (0.0-1.0) mg/dL AST 11 L (15-37) U/L ALT 19 (12-78) U/L Alkaline Phosphatase 52 (46-116) U/L Total Protein 6.7 (6.4-8.2) g/dL Albumin 2.5 L (3.4-5.0) g/dL Globulin 4.2 (2.2-4.2) g/dL Albumin/Globulin Ratio 0.6 L (0.8-2.0) Soren Results Last 24 Hours: Microbiology 07/31/20 06:36 Clostridioides difficile (PCR) - Final Stool / Feces 07/29/20 05:41 MRSA Surveillance Culture - Final Nares, Unspecified NO MRSA ISOLATED Med Orders - Current: Current Medications Acetaminophen (Tylenol) 650 mg PO Q4H PRN PRN Reason: Pain Last Admin: 07/30/20 17:16 Dose: 650 mg Documented by: Hydromorphone HCl (Dilaudid) 0.5 mg IVPUSH Q4H PRN PRN Reason: Abdominal Pain Last Admin: 07/30/20 04:51 Dose: 0.5 mg Documented by: Sodium Chloride (Normal Saline) 1,000 mls @ 100 mls/hr IV ASDIRECTED [facility] Last Admin: 07/31/20 11:58 Dose: 100 mls/hr Documented by: Ciprofloxacin/Dextrose (Cipro In D5w 400 Mg/200 Ml) 200 mls @ 200 mls/hr IV BID [facility] Last Admin: 07/31/20 08:35 Dose: 200 mls/hr Documented by: Metronidazole (Flagyl 500 Mg In Ns 100 Ml) 100 mls @ 100 mls/hr IV Q8H [facility] Last Admin: 07/31/20 12:05 Dose: 100 mls/hr Documented by: Ceftriaxone Sodium 2 gm/ (Sodium Chloride) 100 mls @ 100 mls/hr IV Q24H [facility] Last Admin: 07/30/20 19:11 Dose: 100 mls/hr Documented by: Lactobacillus Acidophilus (Acidolphilus Extra Strength) 1 tab PO DAILY@1200 JACINDA Last Admin: 07/31/20 11:47 Dose: 1 tab Documented by: Ondansetron HCl (Zofran Odt) 4 mg PO Q4H PRN PRN Reason: Nausea/Vomiting Last Admin: 07/31/20 08:18 Dose: 4 mg Documented by: Discontinued Medications Acetaminophen (Tylenol) 650 mg PO Q6H PRN PRN Reason: Headache Last Admin: 07/29/20 08:23 Dose: 650 mg Documented by: Diphenhydramine HCl (Benadryl) 50 mg PO ONETIME ONE Stop: 07/31/20 00:03 Last Admin: 07/31/20 00:12 Dose: 50 mg Documented by: Hydromorphone HCl (Dilaudid) 1 mg IVPUSH ONETIME ONE Stop: 07/29/20 02:53 Last Admin: 07/29/20 02:56 Dose: 1 mg Documented by: Metronidazole 500 mg/ Premix 100 mls @ 100 mls/hr IV Q8H [facility] Last Admin: 07/30/20 04:24 Dose: 100 mls/hr Documented by: Ciprofloxacin/Dextrose 400 mg/ (Premix) 200 mls @ 200 mls/hr IV Q12HR [facility] Last Admin: 07/30/20 07:33 Dose: 200 mls/hr Documented by: Metronidazole (Flagyl 500 Mg In Ns 100 Ml) Confirm Administered Dose 100 mls @ as directed .ROUTE .STK-MED ONE Stop: 07/29/20 05:05 Last Admin: 07/29/20 05:25 Dose: Not Given Documented by: Metronidazole (Flagyl 500 Mg In Ns 100 Ml) Confirm Administered Dose 100 mls @ as directed .ROUTE .STK-MED ONE Stop: 07/29/20 12:16 Last Admin: 07/29/20 13:17 Dose: Not Given Documented by: Ciprofloxacin/Dextrose (Cipro In D5w 400 Mg/200 Ml) Confirm Administered Dose 200 mls @ as directed .ROUTE .STK-MED ONE Stop: 07/29/20 21:55 Last Admin: 07/29/20 23:37 Dose: Not Given Documented by: Metronidazole (Flagyl 500 Mg In Ns 100 Ml) Confirm Administered Dose 100 mls @ as directed .ROUTE .ST-MED ONE Stop: 07/29/20 23:41 Last Admin: 07/30/20 01:10 Dose: Not Given Documented by: Ciprofloxacin/Dextrose (Cipro In D5w 400 Mg/200 Ml) Confirm Administered Dose 200 mls @ as directed .ROUTE .ST-MED ONE Stop: 07/30/20 07:17 Last Admin: 07/30/20 07:36 Dose: Not Given Documented by: Ondansetron HCl (Zofran) 8 mg IVPUSH ONETIME ONE Stop: 07/29/20 02:53 Last Admin: 07/29/20 02:56 Dose: 8 mg Documented by: Ondansetron HCl (Zofran Odt) Confirm Administered Dose 4 mg .ROUTE .STK-MED ONE Stop: 07/30/20 14:30 Last Admin: 07/30/20 15:28 Dose: Not Given Documented by: - Exam General: Alert, Oriented, Cooperative HEENT: Pupils Equal, Pupils Reactive, EOMI Neck: Supple Lungs: Clear to Auscultation, Normal Respiratory Effort Cardiovascular: Regular Rate, Regular Rhythm GI/Abdominal Exam: Tender, Abnormal Bowel Sounds Extremities: Normal Inspection Skin: Warm, Dry, Intact Neurological: No New Focal Deficit Sepsis Event Note - Evaluation Sepsis Screening Result: No Definite Risk - Focused Exam Vital Signs: Vital Signs Temp Pulse Resp BP Pulse Ox 07/31/20 11:40 36.5 C 92 18 133/93 H 98 07/31/20 08:00 36.7 C 95 16 135/91 H 96 07/31/20 04:00 36.4 C 82 18 138/79 96 - Problem List & Annotations (1) Diverticulitis SNOMED Code(s): 394727734 Code(s): K57.92 - DVTRCLI OF INTEST, PART UNSP, W/O PERF OR ABSCESS W/O BLEED Status: Acute Priority: High Current Visit: Yes (2) Bowel perforation SNOMED Code(s): 82355326 Code(s): K63.1 - PERFORATION OF INTESTINE (NONTRAUMATIC) Status: Acute Priority: High Current Visit: Yes - Problem List Review Problem List Initiated/Reviewed/Updated: Yes - My Orders Last 24 Hours: My Active Orders 07/30/20 14:26 Ondansetron [Zofran ODT] 4 mg PO Q4H PRN 07/30/20 19:00 cefTRIAXone [Rocephin] 2 gm Sodium Chloride 0.9% [Normal Saline] 100 ml IV Q24H 07/31/20 06:37 Isolation [COMM] Stat 07/31/20 12:00 Acidophilus/Lactobac Spor [Acidolphilus Extra Strength] 1 tab PO DAILY@1200 - Plan Plan:: Patient to continue pain medications as needed. Continue IV antibiotics and add Rocephin 2g q24 and if no improvement we will consider surgical consult and transfer. Patient counseled and agrees with plan of care. Discussed return to NPO with just water and Ice chips. F/u labs in AM. 07/31/20 Patient to continue on antibiotics f/u AM labs and recheck as needed. Counseled again on possible transfer to surgery if symptoms worsen again. Continue NPO and f/u in AM.
[2020-07-31] MEDS: cefTRIAXone 2 GM in Sodium Chloride 0.9% 100 ML IV SCH (19:04)
[2020-08-01] MEDS: metroNIDAZOLE/Normal Saline 100 ML IV SCH ×3 (03:59→22:01)
[2020-08-01] MEDS: Acetaminophen 325 MG Tab PO PRN ×2 (08:11→19:18)
[2020-08-01] MEDS: Ondansetron 4 MG Tab.DIS PO PRN ×3 (08:12→23:46)
[2020-08-01] MEDS: Ciprofloxacin in D5W 200 ML IV SCH ×2 (08:21→20:35)
[2020-08-01] MEDS: Lactobacillus Acidophilus/Lactobacillus Sporogenes (Probiotic) Tab PO SCH (11:44)
--- NOTE | 2020-08-01 12:02 | PCM.PN ---
- General Info Date of Service: 08/01/20 Subjective Update: Patient notes mild improvement of the abdominal pain. He feels like he could eat. He denies any fever or chills. Functional Status: Reports: Pain Controlled - Review of Systems General: Reports: No Symptoms HEENT: Reports: No Symptoms Pulmonary: Reports: No Symptoms Cardiovascular: Reports: No Symptoms Gastrointestinal: Reports: Abdominal Pain Genitourinary: Reports: No Symptoms Musculoskeletal: Reports: No Symptoms - Patient Data Vitals - Most Recent: Last Vital Signs Temp 36.9 C 08/01/20 11:28 Pulse 80 08/01/20 11:28 Resp 18 08/01/20 11:28 BP 133/93 H 08/01/20 11:28 Pulse Ox 95 08/01/20 11:28 Weight - Most Recent: 72.802 kg I&O - Last 24 Hours: Intake & Output 07/31/20 08/01/20 08/01/20 22:59 06:59 14:59 Intake Total 1300 1700 Balance 1300 1700 Lab Results Last 24 Hours: Laboratory Results - last 24 hr 08/01/20 08/01/20 Range/Units 05:25 05:25 WBC 8.9 D (4.0-11.0) K/uL RBC 4.50 (4.50-6.50) M/uL Hgb 12.8 L (13.0-18.0) g/dL Hct 38.5 L (40.0-54.0) % MCV 86 (76-96) fL MCH 28.4 (27.0-32.0) pg MCHC 33.2 (31.0-35.0) g/dL RDW 14.8 (11.0-16.0) % Plt Count 235 (150-400) K/uL MPV 11.0 H (6.0-10.0) fL Neut % (Auto) 70.7 H (45.0-70.0) % Lymph % (Auto) 17.9 L (20.0-40.0) % [place]comb % (Auto) 9.7 (3.0-10.0) % Eos % (Auto) 1.3 (1.0-5.0) % Baso % (Auto) 0.4 (0.0-0.5) % Neut # (Auto) 6.29 (2.00-7.50) K/uL Lymph # (Auto) 1.59 (1.50-4.00) K/uL [place]comb # (Auto) 0.86 H (0.20-0.80) K/uL Eos # (Auto) 0.12 (0.04-0.40) K/uL Baso # (Auto) 0.04 (0.02-0.10) K/uL Sodium 140 (136-145) mmol/L Potassium 3.8 (3.5-5.1) mmol/L Chloride 105 (98-107) mmol/L Carbon Dioxide 27.3 (21.0-32.0) mmol/L Anion Gap 11.5 (5.0-15.0) mmol/L BUN 10 (8-26) mg/dL Creatinine 1.08 (0.70-1.30) mg/dL Est Cr Clr Drug Dosing 87.15 mL/min Estimated GFR (MDRD) > 60 (>60) MLS/MIN BUN/Creatinine Ratio 9.3 (6-25) Glucose 99 (74-100) mg/dL Calcium 7.9 L (8.5-10.1) mg/dL Soren Results Last 24 Hours: Microbiology 07/31/20 06:36 Clostridioides difficile (PCR) - Final Stool / Feces Med Orders - Current: Current Medications Acetaminophen (Tylenol) 650 mg PO Q4H PRN PRN Reason: Pain Last Admin: 08/01/20 08:11 Dose: 650 mg Documented by: Hydromorphone HCl (Dilaudid) 0.5 mg IVPUSH Q4H PRN PRN Reason: Abdominal Pain Last Admin: 07/30/20 04:51 Dose: 0.5 mg Documented by: Sodium Chloride (Normal Saline) 1,000 mls @ 100 mls/hr IV ASDIRECTED [facility] Last Admin: 07/31/20 19:04 Dose: 100 mls/hr Documented by: Ciprofloxacin/Dextrose (Cipro In D5w 400 Mg/200 Ml) 200 mls @ 200 mls/hr IV BID [facility] Last Admin: 08/01/20 08:21 Dose: 200 mls/hr Documented by: Metronidazole (Flagyl 500 Mg In Ns 100 Ml) 100 mls @ 100 mls/hr IV Q8H [facility] Last Admin: 08/01/20 11:48 Dose: 100 mls/hr Documented by: Ceftriaxone Sodium 2 gm/ (Sodium Chloride) 100 mls @ 100 mls/hr IV Q24H [facility] Last Admin: 07/31/20 19:04 Dose: 100 mls/hr Documented by: Lactobacillus Acidophilus (Acidolphilus Extra Strength) 1 tab PO DAILY@1200 [facility] Last Admin: 08/01/20 11:44 Dose: 1 tab Documented by: Ondansetron HCl (Zofran Odt) 4 mg PO Q4H PRN PRN Reason: Nausea/Vomiting Last Admin: 08/01/20 08:12 Dose: 4 mg Documented by: Discontinued Medications Acetaminophen (Tylenol) 650 mg PO Q6H PRN PRN Reason: Headache Last Admin: 07/29/20 08:23 Dose: 650 mg Documented by: Diphenhydramine HCl (Benadryl) 50 mg PO ONETIME ONE Stop: 07/31/20 00:03 Last Admin: 07/31/20 00:12 Dose: 50 mg Documented by: Hydromorphone HCl (Dilaudid) 1 mg IVPUSH ONETIME ONE Stop: 07/29/20 02:53 Last Admin: 07/29/20 02:56 Dose: 1 mg Documented by: Metronidazole 500 mg/ Premix 100 mls @ 100 mls/hr IV Q8H [facility] Last Admin: 07/30/20 04:24 Dose: 100 mls/hr Documented by: Ciprofloxacin/Dextrose 400 mg/ (Premix) 200 mls @ 200 mls/hr IV Q12HR [facility] Last Admin: 07/30/20 07:33 Dose: 200 mls/hr Documented by: Metronidazole (Flagyl 500 Mg In Ns 100 Ml) Confirm Administered Dose 100 mls @ as directed .ROUTE .STK-MED ONE Stop: 07/29/20 05:05 Last Admin: 07/29/20 05:25 Dose: Not Given Documented by: Metronidazole (Flagyl 500 Mg In Ns 100 Ml) Confirm Administered Dose 100 mls @ as directed .ROUTE .STK-MED ONE Stop: 07/29/20 12:16 Last Admin: 07/29/20 13:17 Dose: Not Given Documented by: Ciprofloxacin/Dextrose (Cipro In D5w 400 Mg/200 Ml) Confirm Administered Dose 200 mls @ as directed .ROUTE .STK-MED ONE Stop: 07/29/20 21:55 Last Admin: 07/29/20 23:37 Dose: Not Given Documented by: Metronidazole (Flagyl 500 Mg In Ns 100 Ml) Confirm Administered Dose 100 mls @ as directed .ROUTE .STK-MED ONE Stop: 07/29/20 23:41 Last Admin: 07/30/20 01:10 Dose: Not Given Documented by: Ciprofloxacin/Dextrose (Cipro In D5w 400 Mg/200 Ml) Confirm Administered Dose 200 mls @ as directed .ROUTE .STK-MED ONE Stop: 07/30/20 07:17 Last Admin: 07/30/20 07:36 Dose: Not Given Documented by: Ondansetron HCl (Zofran) 8 mg IVPUSH ONETIME ONE Stop: 07/29/20 02:53 Last Admin: 07/29/20 02:56 Dose: 8 mg Documented by: Ondansetron HCl (Zofran Odt) Confirm Administered Dose 4 mg .ROUTE .STK-MED ONE Stop: 07/30/20 14:30 Last Admin: 07/30/20 15:28 Dose: Not Given Documented by: - Exam General: Alert, Oriented, Cooperative HEENT: Pupils Equal, Pupils Reactive Neck: Supple Lungs: Clear to Auscultation, Normal Respiratory Effort Cardiovascular: Regular Rate, Regular Rhythm GI/Abdominal Exam: Tender, Abnormal Bowel Sounds (increased) Extremities: Normal Inspection Sepsis Event Note - Evaluation Sepsis Screening Result: No Definite Risk - Focused Exam Vital Signs: Vital Signs Temp Temp Pulse Resp BP Pulse Ox 08/01/20 11:28 36.9 C 80 18 133/93 H 95 08/01/20 08:00 36.8 C 91 18 141/91 H 95 08/01/20 04:00 36.4 C 90 20 134/89 96 - Problem List & Annotations (1) Diverticulitis SNOMED Code(s): 850737203 Code(s): K57.92 - DVTRCLI OF INTEST, PART UNSP, W/O PERF OR ABSCESS W/O BLEED Status: Acute Priority: High Current Visit: Yes (2) Bowel perforation SNOMED Code(s): 93464642 Code(s): K63.1 - PERFORATION OF INTESTINE (NONTRAUMATIC) Status: Acute Priority: High Current Visit: Yes - Problem List Review Problem List Initiated/Reviewed/Updated: Yes - My Orders Last 24 Hours: My Active Orders 07/31/20 12:00 Acidophilus/Lactobac Spor [Acidolphilus Extra Strength] 1 tab PO DAILY@1200 08/01/20 11:27 Abdomen Pelvis wo Cont [CT] Routine - Plan Plan:: Patient to continue pain medications as needed. Continue IV antibiotics and add Rocephin 2g q24 and if no improvement we will consider surgical consult and transfer. Patient counseled and agrees with plan of care. Discussed return to NPO with just water and Ice chips. F/u labs in AM. 07/31/20 Patient to continue on antibiotics f/u AM labs and recheck as needed. Counseled again on possible transfer to surgery if symptoms worsen again. Continue NPO and f/u in AM. 08/01/20 Patient to be continually monitored for symptoms. Clinically improved at this time and we will continue to monitor for surgical need. Improved WBC but some continued abdominal pain. Recheck labs in am and continue antibiotics.
--- NOTE | 2020-08-01 12:55 | CT ---
DATE OF SERVICE: 08/01/2020 CLINICAL DATA: Perforation Unenhanced abdomen and pelvic CT: Multislice acquisition through the abdomen and pelvis without IV, but with oral contrast was performed. Comparison is made to a prior exam dated 29 July 2020. There are linear densities in both lung bases consistent with linear atelectasis or fibrosis. The lung bases otherwise clear. The heart size is normal. The liver, spleen, pancreas, right and left adrenals, and right left kidneys are stable. The bladder is partially fluid filled. There is diffuse bladder wall thickening. This is probably related to distention. There is persistent diverticulosis of the descending and sigmoid colon. There is persistent perisigmoidal fat stranding and fluid consistent with diverticulitis. There are persistent small extraluminal gas collections also consistent with diverticulitis. These are more numerous than on the prior exam. There is also mural thickening of multiple adjacent loops of small bowel consistent with inflammation of the adjacent loops of small bowel. Overall there has been mild progression from the prior exam. No clearly defined abscess. The exam is otherwise unchanged from the prior. MTDD
[2020-08-01] MEDS: Sodium Chloride 0.9% 1,000 ML IV SCH (15:52)
[2020-08-01] MEDS: cefTRIAXone 2 GM in Sodium Chloride 0.9% 100 ML IV SCH (19:13)
[2020-08-02] MEDS: HYDROmorphone 2 MG/ML SDV IVPUSH PRN (01:15)
[2020-08-02] MEDS: Acetaminophen 325 MG Tab PO PRN (01:16)
[2020-08-02] MEDS: metroNIDAZOLE/Normal Saline 100 ML IV SCH (04:02)
[2020-08-02] MEDS: Ciprofloxacin in D5W 200 ML IV SCH (07:46)
[2020-08-02] MEDS: Ondansetron 4 MG Tab.DIS PO PRN (08:44)
--- NOTE | 2020-08-02 09:16 | PCM.PN ---
- General Info Date of Service: 08/02/20 Subjective Update: Patient had increasing pain the past evening and notes continued discomfort this am but not as bad as last night. He denies any fever or chills. He required dialudid last night. - Review of Systems General: Reports: No Symptoms HEENT: Reports: No Symptoms Pulmonary: Reports: No Symptoms Cardiovascular: Reports: No Symptoms Gastrointestinal: Reports: Abdominal Pain Genitourinary: Reports: No Symptoms Musculoskeletal: Reports: No Symptoms - Patient Data Vitals - Most Recent: Last Vital Signs Temp 37.7 C 08/02/20 00:00 Pulse 107 H 08/02/20 00:00 Resp 16 08/02/20 04:00 BP 134/86 08/02/20 00:00 Pulse Ox 97 08/02/20 00:00 Weight - Most Recent: 72.802 kg I&O - Last 24 Hours: Intake & Output 08/01/20 08/02/20 08/02/20 22:59 06:59 14:59 Intake Total 1200 500 Balance 1200 500 Lab Results Last 24 Hours: Laboratory Results - last 24 hr 08/02/20 08/02/20 08/02/20 Range/Units 07:00 07:15 07:15 WBC 14.8 H D (4.0-11.0) K/uL RBC 4.65 (4.50-6.50) M/uL Hgb 13.4 (13.0-18.0) g/dL Hct 39.6 L (40.0-54.0) % MCV 85 (76-96) fL MCH 28.8 (27.0-32.0) pg MCHC 33.8 (31.0-35.0) g/dL RDW 14.9 (11.0-16.0) % Plt Count 278 (150-400) K/uL MPV 11.0 H (6.0-10.0) fL Neut % (Auto) 80.4 H (45.0-70.0) % Lymph % (Auto) 10.1 L (20.0-40.0) % Bureau % (Auto) 9.0 (3.0-10.0) % Eos % (Auto) 0.2 L (1.0-5.0) % Baso % (Auto) 0.3 (0.0-0.5) % Neut # (Auto) 11.91 H (2.00-7.50) K/uL Lymph # (Auto) 1.49 L (1.50-4.00) K/uL [place] # (Auto) 1.33 H (0.20-0.80) K/uL Eos # (Auto) 0.03 L (0.04-0.40) K/uL Baso # (Auto) 0.04 (0.02-0.10) K/uL Sodium 140 (136-145) mmol/L Potassium 3.8 (3.5-5.1) mmol/L Chloride 106 (98-107) mmol/L Carbon Dioxide 25.5 (21.0-32.0) mmol/L Anion Gap 12.3 (5.0-15.0) mmol/L BUN 9 (8-26) mg/dL Creatinine 0.98 (0.70-1.30) mg/dL Est Cr Clr Drug Dosing 92.86 mL/min Estimated GFR (MDRD) > 60 (>60) MLS/MIN BUN/Creatinine Ratio 9.2 (6-25) Glucose 106 H (74-100) mg/dL Lactic Acid 1.1 (0.4-2.0) mmol/L Calcium 7.7 L (8.5-10.1) mg/dL Med Orders - Current: Current Medications Acetaminophen (Tylenol) 650 mg PO Q4H PRN PRN Reason: Pain Last Admin: 08/02/20 01:16 Dose: 650 mg Documented by: Hydromorphone HCl (Dilaudid) 0.5 mg IVPUSH Q4H PRN PRN Reason: Abdominal Pain Last Admin: 08/02/20 01:15 Dose: 0.5 mg Documented by: Sodium Chloride (Normal Saline) 1,000 mls @ 100 mls/hr IV ASDIRECTED [facility] Last Admin: 08/01/20 15:52 Dose: 100 mls/hr Documented by: Ciprofloxacin/Dextrose (Cipro In D5w 400 Mg/200 Ml) 200 mls @ 200 mls/hr IV BID [facility] Last Admin: 08/02/20 07:46 Dose: 200 mls/hr Documented by: Metronidazole (Flagyl 500 Mg In Ns 100 Ml) 100 mls @ 100 mls/hr IV Q8H [facility] Last Admin: 08/02/20 04:02 Dose: 100 mls/hr Documented by: Ceftriaxone Sodium 2 gm/ (Sodium Chloride) 100 mls @ 100 mls/hr IV Q24H [facility] Last Admin: 08/01/20 19:13 Dose: 100 mls/hr Documented by: Lactobacillus Acidophilus (Acidolphilus Extra Strength) 1 tab PO DAILY@1200 [facility] Last Admin: 08/01/20 11:44 Dose: 1 tab Documented by: Ondansetron HCl (Zofran Odt) 4 mg PO Q4H PRN PRN Reason: Nausea/Vomiting Last Admin: 08/02/20 08:44 Dose: 4 mg Documented by: Discontinued Medications Acetaminophen (Tylenol) 650 mg PO Q6H PRN PRN Reason: Headache Last Admin: 07/29/20 08:23 Dose: 650 mg Documented by: Diphenhydramine HCl (Benadryl) 50 mg PO ONETIME ONE Stop: 07/31/20 00:03 Last Admin: 07/31/20 00:12 Dose: 50 mg Documented by: Hydromorphone HCl (Dilaudid) 1 mg IVPUSH ONETIME ONE Stop: 07/29/20 02:53 Last Admin: 07/29/20 02:56 Dose: 1 mg Documented by: Metronidazole 500 mg/ Premix 100 mls @ 100 mls/hr IV Q8H [facility] Last Admin: 07/30/20 04:24 Dose: 100 mls/hr Documented by: Ciprofloxacin/Dextrose 400 mg/ (Premix) 200 mls @ 200 mls/hr IV Q12HR [facility] Last Admin: 07/30/20 07:33 Dose: 200 mls/hr Documented by: Metronidazole (Flagyl 500 Mg In Ns 100 Ml) Confirm Administered Dose 100 mls @ as directed .ROUTE .STK-MED ONE Stop: 07/29/20 05:05 Last Admin: 07/29/20 05:25 Dose: Not Given Documented by: Metronidazole (Flagyl 500 Mg In Ns 100 Ml) Confirm Administered Dose 100 mls @ as directed .ROUTE .STK-MED ONE Stop: 07/29/20 12:16 Last Admin: 07/29/20 13:17 Dose: Not Given Documented by: Ciprofloxacin/Dextrose (Cipro In D5w 400 Mg/200 Ml) Confirm Administered Dose 200 mls @ as directed .ROUTE .STK-MED ONE Stop: 07/29/20 21:55 Last Admin: 07/29/20 23:37 Dose: Not Given Documented by: Metronidazole (Flagyl 500 Mg In Ns 100 Ml) Confirm Administered Dose 100 mls @ as directed .ROUTE .STK-MED ONE Stop: 07/29/20 23:41 Last Admin: 07/30/20 01:10 Dose: Not Given Documented by: Ciprofloxacin/Dextrose (Cipro In D5w 400 Mg/200 Ml) Confirm Administered Dose 200 mls @ as directed .ROUTE .STK-MED ONE Stop: 07/30/20 07:17 Last Admin: 07/30/20 07:36 Dose: Not Given Documented by: Ondansetron HCl (Zofran) 8 mg IVPUSH ONETIME ONE Stop: 07/29/20 02:53 Last Admin: 07/29/20 02:56 Dose: 8 mg Documented by: Ondansetron HCl (Zofran Odt) Confirm Administered Dose 4 mg .ROUTE .STK-MED ONE Stop: 07/30/20 14:30 Last Admin: 07/30/20 15:28 Dose: Not Given Documented by: - Exam General: Alert, Oriented, Cooperative HEENT: Pupils Equal, Pupils Reactive, EOMI Neck: Supple Lungs: Clear to Auscultation, Normal Respiratory Effort Cardiovascular: Regular Rate, Regular Rhythm GI/Abdominal Exam: Normal Bowel Sounds Back Exam: Normal Inspection Extremities: Normal Inspection Sepsis Event Note - Evaluation Sepsis Screening Result: No Definite Risk - Focused Exam Vital Signs: Vital Signs Temp Pulse Resp BP Pulse Ox 08/02/20 04:00 16 08/02/20 00:00 37.7 C 107 H 16 134/86 97 - Problem List & Annotations (1) Diverticulitis SNOMED Code(s): 064394356 Code(s): K57.92 - DVTRCLI OF INTEST, PART UNSP, W/O PERF OR ABSCESS W/O BLEED Status: Acute Priority: High Current Visit: Yes (2) Bowel perforation SNOMED Code(s): 42905620 Code(s): K63.1 - PERFORATION OF INTESTINE (NONTRAUMATIC) Status: Acute Priority: High Current Visit: Yes (3) Leukocytosis SNOMED Code(s): 304229704, 363533923 Code(s): D72.829 - ELEVATED WHITE BLOOD CELL COUNT, UNSPECIFIED Status: Acute Current Visit: Yes - Problem List Review Problem List Initiated/Reviewed/Updated: Yes - Plan Plan:: Patient to continue pain medications as needed. Continue IV antibiotics and add Rocephin 2g q24 and if no improvement we will consider surgical consult and transfer. Patient counseled and agrees with plan of care. Discussed return to NPO with just water and Ice chips. F/u labs in AM. 07/31/20 Patient to continue on antibiotics f/u AM labs and recheck as needed. Counseled again on possible transfer to surgery if symptoms worsen again. Continue NPO and f/u in AM. 08/02/20 Patient's abdominal pain worsened. We will f/u lab result and consider further management.
[2020-08-02 09:57] VITALS: BP 142/98; PULSE 96
--- NOTE | 2020-08-02 10:02 | PCM.DCSUM1 ---
Discharge Summary - Discharge Data Discharge Date: 08/02/20 Discharge Disposition: DC/Tfer to Acute Hospital 02 Condition: Good - Referral to Home Health Primary Care Physician: PCP None - Discharge Diagnosis/Problem(s) (1) Diverticulitis SNOMED Code(s): 179020693 ICD Code: K57.92 - DVTRCLI OF INTEST, PART UNSP, W/O PERF OR ABSCESS W/O BLEED Status: Acute Priority: High Current Visit: Yes (2) Bowel perforation SNOMED Code(s): 60767976 ICD Code: K63.1 - PERFORATION OF INTESTINE (NONTRAUMATIC) Status: Acute Priority: High Current Visit: Yes (3) Leukocytosis SNOMED Code(s): 031336968, 367290665 ICD Code: D72.829 - ELEVATED WHITE BLOOD CELL COUNT, UNSPECIFIED Status: Acute Priority: High Current Visit: Yes - Patient Instructions Diet: NPO Activity: Bedrest - Discharge Plan *PRESCRIPTION DRUG MONITORING PROGRAM REVIEWED*: Not Applicable *COPY OF PRESCRIPTION DRUG MONITORING REPORT IN PATIENT CHARY: Not Applicable Home Medications: Home Meds buPROPion [Wellbutrin] 150 mg PO BID 01/11/19 [History] Patient Handouts: Diverticulitis, [id number] Forms: ED Department Discharge - Discharge Summary/Plan Comment DC Time >30 min.: Yes Discharge Summary/Plan Comment: Patient to be transferred to [facility] for a surgical consult and monitoring. His WBC count has elevated and clinical symptoms have worsened. Consulted Dr. Gauthier and Dr. Marrufo and patient to be transferred to [facility] for Surgical consult and Hospital care. - General Info Date of Service: 08/02/20 Subjective Update: Increased abdominal pain last night. No fever or chills. No appetite. - Review of Systems General: Reports: No Symptoms HEENT: Reports: No Symptoms Pulmonary: Reports: No Symptoms Cardiovascular: Reports: No Symptoms Gastrointestinal: Reports: Abdominal Pain Genitourinary: Reports: No Symptoms Musculoskeletal: Reports: No Symptoms - Patient Data Vitals - Most Recent: Last Vital Signs Temp 36.7 C 08/02/20 08:00 Pulse 96 08/02/20 08:00 Resp 18 08/02/20 08:00 BP 142/98 H 08/02/20 08:00 Pulse Ox 97 08/02/20 08:00 Weight - Most Recent: 72.802 kg I&O - Last 24 hours: Intake & Output 08/01/20 08/02/20 08/02/20 22:59 06:59 14:59 Intake Total 1200 500 Balance 1200 500 Lab Results - Last 24 hrs: Laboratory Results - last 24 hr 08/02/20 08/02/20 08/02/20 Range/Units 07:00 07:15 07:15 WBC 14.8 H D (4.0-11.0) K/uL RBC 4.65 (4.50-6.50) M/uL Hgb 13.4 (13.0-18.0) g/dL Hct 39.6 L (40.0-54.0) % MCV 85 (76-96) fL MCH 28.8 (27.0-32.0) pg MCHC 33.8 (31.0-35.0) g/dL RDW 14.9 (11.0-16.0) % Plt Count 278 (150-400) K/uL MPV 11.0 H (6.0-10.0) fL Neut % (Auto) 80.4 H (45.0-70.0) % Lymph % (Auto) 10.1 L (20.0-40.0) % [place] % (Auto) 9.0 (3.0-10.0) % Eos % (Auto) 0.2 L (1.0-5.0) % Baso % (Auto) 0.3 (0.0-0.5) % Neut # (Auto) 11.91 H (2.00-7.50) K/uL Lymph # (Auto) 1.49 L (1.50-4.00) K/uL [place] # (Auto) 1.33 H (0.20-0.80) K/uL Eos # (Auto) 0.03 L (0.04-0.40) K/uL Baso # (Auto) 0.04 (0.02-0.10) K/uL Sodium 140 (136-145) mmol/L Potassium 3.8 (3.5-5.1) mmol/L Chloride 106 (98-107) mmol/L Carbon Dioxide 25.5 (21.0-32.0) mmol/L Anion Gap 12.3 (5.0-15.0) mmol/L BUN 9 (8-26) mg/dL Creatinine 0.98 (0.70-1.30) mg/dL Est Cr Clr Drug Dosing 92.86 mL/min Estimated GFR (MDRD) > 60 (>60) MLS/MIN BUN/Creatinine Ratio 9.2 (6-25) Glucose 106 H (74-100) mg/dL Lactic Acid 1.1 (0.4-2.0) mmol/L Calcium 7.7 L (8.5-10.1) mg/dL Med Orders - Current: Current Medications Acetaminophen (Tylenol) 650 mg PO Q4H PRN PRN Reason: Pain Last Admin: 08/02/20 01:16 Dose: 650 mg Documented by: Hydromorphone HCl (Dilaudid) 0.5 mg IVPUSH Q4H PRN PRN Reason: Abdominal Pain Last Admin: 08/02/20 01:15 Dose: 0.5 mg Documented by: Sodium Chloride (Normal Saline) 1,000 mls @ 100 mls/hr IV ASDIRECTED [facility] Last Admin: 08/01/20 15:52 Dose: 100 mls/hr Documented by: Ciprofloxacin/Dextrose (Cipro In D5w 400 Mg/200 Ml) 200 mls @ 200 mls/hr IV BID [facility] Last Admin: 08/02/20 07:46 Dose: 200 mls/hr Documented by: Metronidazole (Flagyl 500 Mg In Ns 100 Ml) 100 mls @ 100 mls/hr IV Q8H [facility] Last Admin: 08/02/20 04:02 Dose: 100 mls/hr Documented by: Ceftriaxone Sodium 2 gm/ (Sodium Chloride) 100 mls @ 100 mls/hr IV Q24H [facility] Last Admin: 08/01/20 19:13 Dose: 100 mls/hr Documented by: Lactobacillus Acidophilus (Acidolphilus Extra Strength) 1 tab PO DAILY@1200 [facility] Last Admin: 08/01/20 11:44 Dose: 1 tab Documented by: Ondansetron HCl (Zofran Odt) 4 mg PO Q4H PRN PRN Reason: Nausea/Vomiting Last Admin: 08/02/20 08:44 Dose: 4 mg Documented by: Discontinued Medications Acetaminophen (Tylenol) 650 mg PO Q6H PRN PRN Reason: Headache Last Admin: 07/29/20 08:23 Dose: 650 mg Documented by: Diphenhydramine HCl (Benadryl) 50 mg PO ONETIME ONE Stop: 07/31/20 00:03 Last Admin: 07/31/20 00:12 Dose: 50 mg Documented by: Hydromorphone HCl (Dilaudid) 1 mg IVPUSH ONETIME ONE Stop: 07/29/20 02:53 Last Admin: 07/29/20 02:56 Dose: 1 mg Documented by: Metronidazole 500 mg/ Premix 100 mls @ 100 mls/hr IV Q8H [facility] Last Admin: 07/30/20 04:24 Dose: 100 mls/hr Documented by: Ciprofloxacin/Dextrose 400 mg/ (Premix) 200 mls @ 200 mls/hr IV Q12HR [facility] Last Admin: 07/30/20 07:33 Dose: 200 mls/hr Documented by: Metronidazole (Flagyl 500 Mg In Ns 100 Ml) Confirm Administered Dose 100 mls @ as directed .ROUTE .STK-MED ONE Stop: 07/29/20 05:05 Last Admin: 07/29/20 05:25 Dose: Not Given Documented by: Metronidazole (Flagyl 500 Mg In Ns 100 Ml) Confirm Administered Dose 100 mls @ as directed .ROUTE .STK-MED ONE Stop: 07/29/20 12:16 Last Admin: 07/29/20 13:17 Dose: Not Given Documented by: Ciprofloxacin/Dextrose (Cipro In D5w 400 Mg/200 Ml) Confirm Administered Dose 200 mls @ as directed .ROUTE .STK-MED ONE Stop: 07/29/20 21:55 Last Admin: 07/29/20 23:37 Dose: Not Given Documented by: Metronidazole (Flagyl 500 Mg In Ns 100 Ml) Confirm Administered Dose 100 mls @ as directed .ROUTE .STK-MED ONE Stop: 07/29/20 23:41 Last Admin: 07/30/20 01:10 Dose: Not Given Documented by: Ciprofloxacin/Dextrose (Cipro In D5w 400 Mg/200 Ml) Confirm Administered Dose 200 mls @ as directed .ROUTE .STK-MED ONE Stop: 07/30/20 07:17 Last Admin: 07/30/20 07:36 Dose: Not Given Documented by: Ondansetron HCl (Zofran) 8 mg IVPUSH ONETIME ONE Stop: 07/29/20 02:53 Last Admin: 07/29/20 02:56 Dose: 8 mg Documented by: Ondansetron HCl (Zofran Odt) Confirm Administered Dose 4 mg .ROUTE .STK-MED ONE Stop: 07/30/20 14:30 Last Admin: 07/30/20 15:28 Dose: Not Given Documented by: - Exam General: Reports: Alert, Oriented, Cooperative HEENT: Reports: Pupils Equal, Pupils Reactive, EOMI Neck: Reports: Supple Lungs: Reports: Clear to Auscultation, Normal Respiratory Effort Cardiovascular: Reports: Regular Rate, Regular Rhythm GI/Abdominal Exam: Tender
[2020-08-02] MEDS ORDERED: Scopolamine 1.5 MG Transdermal Patch TRDERM PRN (11:28)
[2020-08-02] MEDS ORDERED: Scopolamine 1.5 MG Transdermal Patch ONE (11:32)
== END 2020-08-02 11:55 | DRG 244 ==
LOC: LB.ED 02:30 → LB.MS 04:30 → OBSVTOIN 07-30 10:40
PROVIDERS: ADMIT Nurse Practitioner; ATTEND Family Medicine
DX: K57.20 Diverticulitis of large intestine with perforation and abscess without bleeding (principal); K21.9 Gastro-esophageal reflux disease without esophagitis; M54.9 Dorsalgia, unspecified; G89.29 Other chronic pain; Z20.828 Contact with and (suspected) exposure to other viral communicable diseases; Z88.1 Allergy status to other antibiotic agents
CPT/HCPCS: 36415; 74176; 80048; 80053; 81003; 83605; 85025; 87493; 96361; 96365; 96366; 96367; 96374; 96375; 96376; 99285-25; A9270-GY; G0378; J0696; J0744; J1170; J2405; J3490; J7030; J7050; U0002

== ENCOUNTER 2023-05-16 12:42 | Emergency (ER) | payer BC, OTHER ==
[2023-05-16] MEDS ORDERED: Sodium Chloride 0.9% 1,000 ML IV ONE (13:14)
[2023-05-16 13:33] LABS: BASOPHILS ABSOLUTE AUTO 0.07 K/uL (0.02-0.10); BASOPHILS PERCENT AUTO 1.1 % (0.0-0.5); EOSINOPHILS PERCENT AUTO 3.2 % (1.0-5.0); HEMATOCRIT 46.5 % (40.0-54.0); HEMOGLOBIN 15.8 g/dL (13.0-18.0); LYMPHOCYTES ABSOLUTE AUTO 1.91 K/uL (1.50-4.00); LYMPHOCYTES PERCENT AUTO 30.9 % (20.0-40.0); MEAN CORPUSCULAR HEMOGLOBIN 28.3 pg (27.0-32.0); MEAN CORPUSCULAR VOLUME 83 fL (76-96); MEAN PLATELET VOLUME 10.7 fL (6.0-10.0); MONOCYTES ABSOLUTE AUTO 0.61 K/uL (0.20-0.80); MONOCYTES PERCENT AUTO 9.9 % (3.0-10.0); NEUTROPHILS PERCENT AUTO 54.9 % (45.0-70.0); PLATELET COUNT,PLT 214 K/uL (150-400); RED BLOOD CELL COUNT 5.59 M/uL (4.50-6.50); RED CELL DISTRIBUTION WIDTH 14.3 % (11.0-16.0); WHITE BLOOD CELL COUNT,WBC 6.2 K/uL (4.0-11.0)
[2023-05-16 13:54] LABS: ALANINE AMINOTRANSFERASE,ALT 40 U/L (12-78); ALBUMIN 3.6 g/dL (3.4-5.0); ALKALINE PHOSPHATASE 62 U/L (46-116); ANION GAP 10.4 mmol/L (5.0-15.0); ASPARTATE AMNIOTRANSFERASE,AST 16 U/L (15-37); BILIRUBIN TOTAL 0.4 mg/dL (0.0-1.0); BLOOD UREA NITROGEN,BUN 15 mg/dL (8-26); BUN/CREATININE RATIO 12.4 (6-25); CALCIUM 9.7 mg/dL (8.5-10.1); CARBON DIOXIDE,CO2 29.1 mmol/L (21.0-32.0); CHLORIDE,CL 106 mmol/L (98-107); CREATININE 1.21 mg/dL (0.70-1.30); ESTIMATED GFR 72 mL/min (>60); GLUCOSE RANDOM 94 mg/dL (74-100); POTASSIUM,K 4.5 mmol/L (3.5-5.1); PROTEIN TOTAL,TP 7.2 g/dL (6.4-8.2); SODIUM,NA 141 mmol/L (136-145); TROPONIN I HIGH SENSITIVITY 6.9 pg/ml (<=60.4)
[2023-05-16 14:07] LABS: APPEARANCE,URINE CLEAR (CLEAR); BILIRUBIN,URINE NEGATIVE (NEGATIVE); COLOR,URINE YELLOW; GLUCOSE,URINE NEGATIVE (NEGATIVE); KETONES,URINE NEGATIVE (NEGATIVE); LEUKOCYTE ESTERASE,URINE NEGATIVE (NEGATIVE); NITRITE,URINE NEGATIVE (NEGATIVE); OCCULT BLOOD,URINE NEGATIVE (NEGATIVE); PROTEIN,URINE NEGATIVE (NEGATIVE); UROBILINOGEN,URINE 0.2 E.U./dL (0.2-1.0)
[2023-05-16 16:36] VITALS: BP 133/90; PULSE 77
== END 2023-05-16 16:33 | disposition home or self-care (01) ==
LOC: LB.ED 12:42
DX: G45.4 Transient global amnesia (principal); Z88.1 Allergy status to other antibiotic agents
CPT/HCPCS: 36415; 70450; 71045; 80053; 81003; 82947; 84484; 85025; 93005; 96360; 99285-25; J7030